=== PATIENT | female | born 2005 | race Hispanic/Latino ===

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

== ENCOUNTER 2024-04-24 14:39 | Emergency (ER) | payer MEDICAID ==
[~2024-04-24] VITALS: Ht 162.6 cm; Wt 73.9 kg
[~2024-04-24 14:39] MED LIST: AMOX1TAB16 PO; IBUP-2077 PO; SIME80TA13 PO
[2024-04-24 14:55] VITALS: BP 106/76; PULSE 117; RESP 16
[2024-04-24 15:53] LABS: ALBUMIN 3.8 g/dL (3.5-5.0)
[2024-04-24] MEDS: 0.9%NACL 1000ML 1,000 ML IV ONE (16:06)
[2024-04-24] MEDS: KETOROLAC 30MG VIAL (30MG/ML) IVP ONE (16:07)
[2024-04-24 17:05] LABS: APPEARANCE,URINE CLOUDY (CLEAR); BILIRUBIN,URINE NEGATIVE (NEGATIVE); COLOR,URINE COLORLESS (YELLOW); GLUCOSE, URINE (UA) NEGATIVE (NEGATIVE); KETONES,URINE NEGATIVE (NEGATIVE); LEUKOCYTE ESTERASE ,URINE 500 Leu/uL (NEGATIVE); NITRATE,URINE NEGATIVE (NEGATIVE); OCCULT BLOOD,URINE LARGE (NEGATIVE); PH,URINE 5.5 (5.0-8.0); PROTEIN,URINE 10 mg/dL (NEGATIVE); UROBILINOGEN,URINE 0.2 mg/dL (0.2-1.0)
[2024-04-24 17:06] LABS: ADD UA MICROSCOPIC YES
[2024-04-24 17:06] LABS: BASOPHILS # (AUTO) 0.03 K/uL (0.00-0.20); BASOPHILS % (AUTO) 0.3 % (0.0-5.0); EOSINOPHILS # (AUTO) 0.02 K/uL (0.00-0.70); EOSINOPHILS % (AUTO) 0.2 % (0.0-8.0); HEMATOCRIT 34.4 % (36-48); IMMATURE GRANULOCYTE ABSOLUTE 0.03 K/uL (0-1); LYMPHOCYTES # (AUTO) 0.8 K/uL (1.0-4.8); LYMPHOCYTES % (AUTO) 6.7 % (21.0-51.0); MEAN CORPUSCULAR HEMOGLOBIN 26.9 pg (27.0-33.0); MEAN CORPUSCULAR HGB CONC 32.6 g/dL (32.0-36.0); MEAN CORPUSCULAR VOLUME 82.7 fL (80-100); MONOCYTES # (AUTO) 0.9 K/uL (0.1-1.0); MONOCYTES % (AUTO) 7.4 % (3.0-13.0); NEUTROPHILS # (AUTO) 9.9 K/uL (1.8-7.7); NEUTROPHILS % (AUTO) 85.1 % (40.0-77.0); PLATELET COUNT (AUTO) 213 K/uL (130-400); RED BLOOD CELL COUNT(AUTO) 4.16 MIL/uL (4.00-5.50); RED CELL DISTRIBUTION WIDTH 13.9 % (11.0-15.5); WHITE BLOOD COUNT (AUTO) 11.6 K/uL (4.8-10.8)
[2024-04-24 17:09] LABS: HCG,QUALITATIVE URINE NEGATIVE (NEGATIVE)
[2024-04-24 17:11] LABS: BACTERIA,URINE RARE /HPF (None Seen); MUCUS,URINE RARE LPF (None Seen); OTHER CASTS, URINE 2 /LPF (None Seen); RBC,URINE 26-50 /HPF (0-1); SQUAMOUS EPITHELIAL CELL,UR FEW /HPF (0-2); WBC CLUMP FEW /HPF (0-1); WBC,URINE >100 /HPF (0-1); YEAST,URINE BUDDING FEW /HPF (None Seen)
[2024-04-24 17:18] LABS: ALBUMIN 3.5 g/dL (3.5-5.0); BILIRUBIN,TOTAL 0.3 mg/dL (0.2-1.0); CREATININE 0.9 mg/dL (0.5-1.0); POTASSIUM 3.7 mmol/L (3.5-5.1)
[2024-04-24] MEDS ORDERED: AMOX1TAB16 PO (17:46)
[2024-04-24] MEDS ORDERED: IBUP-2077 PO (17:46)
[2024-04-24] MEDS ORDERED: PHEN-847 PO (17:46)
== END 2024-04-24 19:03 | disposition home or self-care (01) ==
LOC: EDH 14:39
DX: N30.01 Acute cystitis with hematuria (principal); S39.012A Strain of muscle, fascia and tendon of lower back, initial encounter; Z79.899 Other long term (current) drug therapy; Z98.890 Other specified postprocedural states; X58.XXXA Exposure to other specified factors, initial encounter; Y93.89 Activity, other specified; Y92.89 Other specified places as the place of occurrence of the external cause; Y99.8 Other external cause status
CPT/HCPCS: 99285; 74176; 96374; 80053; 85025; 87077; 87088; 87186; 81001; 81025; 36415; J7030; J1885

== ENCOUNTER 2025-08-13 07:36 | Emergency (ER) | payer MEDICAID ==
[~2025-08-13] VITALS: Ht 160 cm; Wt 72.6 kg
[~2025-08-13 07:36] MED LIST changes: +PHEN-847 PO
[2025-08-13 08:13] LABS: IMMATURE GRANULOCYTE ABSOLUTE 0.03 K/uL (0-1); NUCLEATED RED BLOOD CELLS 0.0 % (0.0-0.19); PLATELET COUNT (AUTO) 234 K/uL (130-400); RED BLOOD CELL COUNT(AUTO) 4.58 MIL/uL (4.00-5.50); RED CELL DISTRIBUTION WIDTH 13.5 % (11.0-15.5); WHITE BLOOD COUNT (AUTO) 7.9 K/uL (4.8-10.8)
[2025-08-13 08:28] LABS: RAPID GROUP A STREP negative (NEGATIVE)
[2025-08-13 08:28] LABS: APPEARANCE,URINE CLEAR (CLEAR); GLUCOSE, URINE (UA) NEGATIVE (NEGATIVE); LEUKOCYTE ESTERASE ,URINE NEGATIVE Leu/uL (NEGATIVE); NITRATE,URINE NEGATIVE (NEGATIVE); OCCULT BLOOD,URINE NEGATIVE (NEGATIVE)
[2025-08-13 08:29] LABS: ADD UA MICROSCOPIC NO
[2025-08-13 08:30] LABS: HCG,QUALITATIVE URINE POSITIVE (NEGATIVE)
--- NOTE | 2025-08-13 08:37 | HMCIMG ---
EXAM: US Obstetrical, Complete <14 weeks CLINICAL HISTORY: Abdominal pain. SHERWIN: 03/26/2025. GA by SHERWIN: 7weeks 6days. TECHNIQUE: Transabdominal imaging of the maternal pelvis and a <14 week gestation with image documentation. COMPARISON: None provided. FINDINGS: GESTATION: Single intrauterine gestational sac with yolk sac and pole. Mean gestational sac diameter measures 2.10cm corresponding to 7 week and 2 days CRL measures 0.87 cm corresponding to 6 weeks and 6 day. heart rate is 141 bpm. UTERUS: Unremarkable and measures 8.8 x 4.4 x 6.3 cm. No myometrial mass. CERVIX: Closed. Unremarkable. OVARIES: Right ovary is obscured tariq to overlying bowel gases. Left ovary is unremarkable and measures 3 x 2 x 1.8 cm. No mass. FREE FLUID: No free fluid. IMPRESSION: Single viable intrauterine with gestational age of 7 weeks 1 day by present ultrasound. No acute abnormality. /Mireya
[2025-08-13 08:38] LABS: INFLUENZA TYPE A Negative For Type A (NEGATIVE); INFLUENZA TYPE B Negative For Type B (NEGATIVE)
[2025-08-13 08:39] LABS: SARS-CoV-2, RNA, NAAT NEGATIVE SARS CoV-2 (NEGATIVE)
[2025-08-13 08:51] LABS: ASPARTATE AMINOTRANSFERASE 19.0 U/L (10-37); CREATININE 0.5 mg/dL (0.5-1.0); GLOMERULAR FILTR. RATE CALC 137.0 mL/min (>90); GLUCOSE,RANDOM 103.0 mg/dL (70-105); HCG,QUANTITATIVE 44487.0 mIU/mL (0-5); SODIUM SERUM 136.0 mmol/L (136-145); TOTAL PROTEIN, SERUM 7.6 g/dL (6.0-8.3); UREA NITROGEN, BLOOD 7.0 mg/dL (7-18)
--- NOTE | 2025-08-13 09:57 | ERN ---
ED Note History of Present Illness Stated Complaint: ABD PAIN, 7 WEEKS Chief Complaint: Abdominal Pain Time Seen by MD: 07:40 Dictation: 20-year-old female presenting to the emergency department with comfortable congestion body aches also having some pelvic cramps but no vaginal bleeding Allergies: Coded Allergies: No Known Drug Allergies (Unverified Allergy, Unknown, 06/06/23) Home Meds Active Scripts Ibuprofen (Ibuprofen 800 mg Tab) 800 Mg Tab, 800 MG PO Q8H PRN for fever or pain, #30 TAB 0 Refills Prov:HAJA SAUCEDA NP 04/24/24 Phenazopyridine HCl (Pyridium) 200 Mg Tab, 200 MG PO TIDPC for 3 Days, #9 TAB TAKE WITH FOOD TO PREVENT STOMACH UPSET. Prov:HAJA SAUCEDA NP 04/24/24 Amoxicillin/Potassium Clav (Amox Tr-K Clv 875-125 mg Tab) 875 Mg-125 Mg Tablet, 1 EACH PO BID for 7 Days, #14 TAB 0 Refills Prov:HAJA SAUCEDA NP 04/24/24 Amoxicillin/Potassium Clav (Amox Tr-K Clv 875-125 mg Tab) 1 Each Tablet, 1 EACH PO Q12H, #14 TAB 0 Refills Prov:SIMÓN CAZARES AGPCJAMES 06/08/23 Simethicone (Mylicon/Mylanta Gas) 80 Mg Chew, 80 MG PO Q8H6, #21 TAB.CHEW 0 Refills Prov:SIMÓN CAZARES 06/08/23 Ibuprofen (Ibuprofen 800 mg Tab) 800 Mg Tab, 800 MG PO Q8H, #21 TAB 0 Refills Prov:SIMÓN CAZARESPCJAMES 06/08/23 Past Medical History Past Medical History: Gallstones Surgical History: Cholecystectomy Family History: HTN Social History: Negative, Lives with family History: Not Applicable LMP: Jul 09, 2025 : 1 Para: 0 Review of System Dictation Constitutional: Per HPI Eyes: Negative for injury, pain,redness, and discharge ENT: Negative for injury,pain or swelling Cardiovascular: Negative for chest pain, palpitations, and edema Respiratory: Negative for shortness of breath, cough, and wheezing, Abdomen/GI: Per HPI MS/Extremity: Negative for injury and deformity Skin: Negative for rash, and discoloration Neuro: Negative for headache, weakness, numbness, tingling, and seizure Psych: Negative for suicide ideation, homicidal ideation, and hallucinations Initial Vital Sign VS Vital Signs Date Time Temp Pulse Resp B/P (MAP) Pulse Ox O2 Delivery O2 Flow Rate FiO2 08/13/25 07:38 97.7 116 18 120/68 99 Room Air 0 08/13/25 07:50 21 Physical Exam Dictation General: awake, alert, NAD Head/Face: Normocephalic, atraumatic Eyes: PERRL, EOMI, vision at baseline ENT: oral cavity clear, TMs clear, no signs of infection Neck: Trachea midline, supple, no nuchal rigidity Cardiovascular: RRR, normal S1/S2, No MRGs, no JVD Respiratory: CTAB, no respiratory distress, No rales or wheezes Abdomen: Soft, non-tender, non-distended, normal bowel sounds, no guarding or rebound. Skin: Warm, dry, normal turgor, no rash MS/Extremity: Pulses equal, no cyanosis, neurovascular intact, FROM Neuro: COAx4, GCS 15, strength 5/5, CN 2-12 intact, normal cerebellar exam, normal gait, Psych: Normal behavior, mood, and affect normal Results (Laboratory/Radiology) Laboratory/Radiology Laboratory Tests Test 08/13/25 08:00 08/13/25 08:07 08/13/25 08:20 Influenza Type A Antigen Negative For Type A Influenza Type B Antigen Negative For Type B SARS-CoV-2, RNA, NAAT NEGATIVE SARS CoV-2 Group A Streptococcus Rapid negative (NEGATIVE) White Blood Count 7.9 K/uL (4.8-10.8) Red Blood Count 4.58 MIL/uL (4.00-5.50) Hemoglobin 12.6 g/dL (12.0-16.0) Hematocrit 38.3 % (36-48) Mean Corpuscular Volume 83.6 fL (80-100) Mean Corpuscular Hemoglobin 27.5 pg (27.0-33.0) Mean Corpuscular Hemoglobin Concent 32.9 g/dL (32.0-36.0) Red Cell Distribution Width 13.5 % (11.0-15.5) Platelet Count 234 K/uL (130-400) Mean Platelet Volume 11.5 fL (7.5-10.5) H Immature Granulocyte % (Auto) 0.4 % (0-1) Neutrophils (%) (Auto) 76.8 % (40.0-77.0) Lymphocytes (%) (Auto) 13.5 % (21.0-51.0) L Monocytes (%) (Auto) 7.0 % (3.0-13.0) Eosinophils (%) (Auto) 1.8 % (0.0-8.0) Basophils (%) (Auto) 0.5 % (0.0-5.0) Neutrophils # (Auto) 6.0 K/uL (1.8-7.7) Lymphocytes # (Auto) 1.1 K/uL (1.0-4.8) Monocytes # (Auto) 0.6 K/uL (0.1-1.0) Eosinophils # (Auto) 0.14 K/uL (0.00-0.70) Basophils # (Auto) 0.04 K/uL (0.00-0.20) Absolute Immature Granulocyte (auto 0.03 K/uL (0-1) Nucleated Red Blood Cells 0.0 % (0.0-0.19) Sodium Level 136 mmol/L (136-145) Potassium Level 4.3 mmol/L (3.5-5.1) Chloride Level 102 mmol/L (101-111) Carbon Dioxide Level 29 mmol/L (21-32) Blood Urea Nitrogen 7 mg/dL (7-18) Creatinine 0.5 mg/dL (0.5-1.0) Glomerular Filtration Rate Calc 137 mL/min (>90) Random Glucose 103 mg/dL (70-105) Total Calcium 8.7 mg/dL (8.5-10.1) Total Bilirubin 0.3 mg/dL (0.2-1.0) Direct Bilirubin 0.1 mg/dL (0.0-0.3) Aspartate Amino Transf (AST/SGOT) 19 U/L (10-37) Alanine Aminotransferase (ALT/SGPT) 34 U/L (12-78) Alkaline Phosphatase 118 U/L (50-136) Total Protein 7.6 g/dL (6.0-8.3) Albumin 3.7 g/dL (3.5-5.0) Human Chorionic Gonadotropin, Quant 69760 mIU/mL (0-5) H Urine Color LIGHT-YELLOW (YELLOW) Urine Appearance CLEAR (CLEAR) Urine pH 7.5 (5.0-8.0) Urine Specific [place] 1.017 (1.001-1.031) Urine Protein NEGATIVE mg/dL (NEGATIVE) Urine Glucose (UA) NEGATIVE mg/dL (NEGATIVE) Urine Ketones NEGATIVE mg/dL (NEGATIVE) Urine Occult Blood NEGATIVE (NEGATIVE) Urine Nitrate NEGATIVE (NEGATIVE) Urine Bilirubin NEGATIVE mg/dL (NEGATIVE) Urine Urobilinogen 0.2 mg/dL (0.2-1.0) Urine Leukocyte Esterase NEGATIVE [place]/uL Urine HCG, Qualitative POSITIVE (NEGATIVE) H Labs Reviewed?: Yes ED Course ED Course Orders Procedure Category Date Status Time Hcg,Quantitative LAB 08/13/25 Complete 07:41 Basic Metabolic Panel LAB 08/13/25 Complete 07:41 Cbc With Differential LAB 08/13/25 Complete 07:41 Hepatic Function Panel LAB 08/13/25 Complete 07:41 Urinalysis Profile LAB 08/13/25 Complete 07:41 ,Urine Test LAB 08/13/25 Complete 07:41 Us Ob <14 Weeks US 08/13/25 Resulted 07:41 Type And Screen BBK 08/13/25 Complete 07:41 Covid Rna Naat LAB 08/13/25 Complete 07:58 Influenza Type A & B, LAB 08/13/25 Complete Rapid 07:58 Rapid (Group A Strep) LAB 08/13/25 Complete 07:58 Vital Signs Date Time Temp Pulse Resp B/P (MAP) Pulse Ox O2 Delivery O2 Flow Rate FiO2 08/13/25 07:50 97.7 116 20 120/68 98 Room Air* 0 21 08/13/25 07:38 97.7 116 18 120/68 99 Room Air 0 Medical Decision Making MDM MDM: Differential diagnosis: Rationale: Tests considered and ordered secondary to shared decision making include: Previous outside records reviewed: Old ER visits. Risk of complication and/or morbidity or mortality of patient management: None Medications-Per medication reconciliation Need for hospitalization: Patient does not meet criteria for hospitalization. Need for emergency major/minor surgery: No There are no social concerns with this patient. Prescription drug management Prescriptions will include symptomatic care Patient's prior external medical records from other ER visits were reviewed by me as indicated. Prior testing and results from previous visits were reviewed. Prior tests were taken into account with medical decision making and resource utilization, independent historian/historians were used to obtain complete medical history. I independently interpreted the test that were performed, results were reviewed by me and considered findings on radiology if ordered. Medical management and examination interpretation discussions were had by me with other qualified healthcare professionals as indicated for the patient's care. 20-year-old female seven weeks stable ultrasound and lab workup, URI, stable for discharge. DX & DISP Disposition: Discharge Departure Impression: Primary Impression: First trimester Additional Impression: Acute URI Condition: Stable Referrals: MARIA DEL ROSARIO BELL (PCP) NADIRA BAILEY MD Aug 13, 2025 09:57
[2025-08-13 10:26] VITALS: BP 115/73; PULSE 105; RESP 18; TEMP 97.9; O2SAT 99
== END 2025-08-13 10:29 | disposition home or self-care (01) ==
LOC: EDH 07:36
DX: O26.891 Other specified pregnancy related conditions, first trimester (principal); O99.511 Diseases of the respiratory system complicating pregnancy, first trimester; J06.9 Acute upper respiratory infection, unspecified; Z3A.01 Less than 8 weeks gestation of pregnancy; Z90.49 Acquired absence of other specified parts of digestive tract; Z20.822 Contact with and (suspected) exposure to COVID-19
CPT/HCPCS: 36415; 76801; 80048; 80076; 81003; 81025; 84702; 85025; 86850; 86900; 86901; 87635; 87804; 87880; 99284

== ENCOUNTER 2025-11-09 19:05 | Emergency (ER) | payer MEDICAID ==
[~2025-11-09] VITALS: Ht 165.1 cm; Wt 78.5 kg
--- NOTE | 2025-11-09 21:28 | ERN ---
ED Note History of Present Illness Stated Complaint: SORE THROAT Chief Complaint: Sore Throat Time Seen by MD: 19:32 Time Seen by Midlevel: 19:32 Dictation: The patient is a 20-year-old female with a history of cholecystectomy who presents to the emergency department with complaints of sore throat, chills onset Wednesday. Patient reports that yesterday she started with a fevers, dry cough, body aches, nasal congestion. Patient reports also she use five months but denies any abdominal pain, vaginal bleeding or discharge. Denies any OB complaints. Patient is one Allergies: Coded Allergies: No Known Drug Allergies (Unverified Allergy, Unknown, 06/06/23) Home Meds Active Scripts Ibuprofen (Ibuprofen 800 mg Tab) 800 Mg Tab, 800 MG PO Q8H PRN for fever or pain, #30 TAB 0 Refills Prov:HAJA SAUCEDA INTEGRITY ANALYST 04/24/24 Phenazopyridine HCl (Pyridium) 200 Mg Tab, 200 MG PO TIDPC for 3 Days, #9 TAB TAKE WITH FOOD TO PREVENT STOMACH UPSET. Prov:HAJA SAUCEDA INTEGRITY ANALYST 04/24/24 Amoxicillin/Potassium Clav (Amox Tr-K Clv 875-125 mg Tab) 875 Mg-125 Mg Tablet, 1 EACH PO BID for 7 Days, #14 TAB 0 Refills Prov:HAJA SAUCEDA INTEGRITY ANALYST 04/24/24 Amoxicillin/Potassium Clav (Amox Tr-K Clv 875-125 mg Tab) 1 Each Tablet, 1 EACH PO Q12H, #14 TAB 0 Refills Prov:SIMÓN CAZARES AGACNP 06/08/23 Simethicone (Mylicon/Mylanta Gas) 80 Mg Chew, 80 MG PO Q8H6, #21 TAB.CHEW 0 Refills Prov:SIMÓN CAZARES AGACNP 06/08/23 Ibuprofen (Ibuprofen 800 mg Tab) 800 Mg Tab, 800 MG PO Q8H, #21 TAB 0 Refills Prov:SIMÓN CAZARES AGACNP 06/08/23 Past Medical History Past Medical History: No Pertinent History, Gallstones Surgical History: Cholecystectomy Family History: HTN Social History: Negative, Lives with family History: Not Applicable : 1 Para: 0 RN Note Reviewed/Agreed w/PFSH: Yes Review of System Dictation Constitutional: Negative for weight loss positive for fever, chills Eyes: Negative for injury, pain,redness, and discharge ENT: Negative for injury,pain or swelling positive for sore throat Cardiovascular: Negative for chest pain, palpitations, and edema Respiratory: Negative for shortness of breath, and wheezing, positive for dry cough, nasal congestion Abdomen/GI: Negative for abdominal pain, nausea, vomiting, diarrhea, and constipation Back: Negative for injury and pain : Negative for injury, bleeding and discharge MS/Extremity: Negative for injury and deformity Skin: Negative for rash, and discoloration Neuro: Negative for headache, weakness, numbness, tingling, and seizure Psych: Negative for suicide ideation, homicidal ideation, and hallucinations Initial Vital Sign VS Vital Signs Date Time Temp Pulse Resp B/P (MAP) Pulse Ox O2 Delivery O2 Flow Rate FiO2 11/09/25 19:32 98.1 91 20 130/72 99 Room Air Physical Exam Dictation Vital Signs reviewed General Appearance: Alert, oriented x 3, no acute distress, well developed, nourished. Head and Face: non-traumatic. Eyes: PERRL, pink conjunctivas, eyelid no trauma, anterior chamber with arcus senilis. Ears: Pinnas intact and no signs of trauma or erythema ear canals clear and no discharge TM no erythema Nose: No discharge, no bleeding. Oropharynx: Mouth normal, tongue pink. pharynx clear,no erythema, tonsils no exudates, no abscesses noted, mucous membrane moist Neck: Supple, non-tender, no thyromegaly, no masses, no JVD, no bruits Breast:Deferred Chest:No tenderness, no crepitus, no paradoxical movement, no retractions Lungs:Clear, well-ventilated, symmetric, no rales, no wheezing, no rhonchi, no stridor, good breath sounds bilaterally Heart: Regular rate, regular rhythm, no murmur, no gallops Vascular: no peripheral edema, Abdomen: Soft, positive bowel sounds, nondistended, no guarding, nontender, no rebound, no masses no hepatomegaly, no splenomegaly, no Preciado's sign, no hernias. Rectal: Deferred Genital: Deferred Neurological: Normal speech, motor function intact, sensory function intact Musculoskeletal: Neck nontender, full range of motion, back nontender, full range of motion, Extremities: nontender, full range of motion Skin: Color pink, dry, no turgor, no rash, no lacerations, no abrasions, no contusions. Lymphatic: Deferred Results (Laboratory/Radiology) Laboratory/Radiology Laboratory Tests Test 11/09/25 21:32 Influenza Type A Antigen Negative For Type A Influenza Type B Antigen Negative For Type B SARS-CoV-2 Antigen (Rapid) PRESUMPTIVE NEGATIVE Group A Streptococcus Rapid negative (NEGATIVE) Labs Reviewed?: Yes ED Course ED Course Orders Procedure Category Date Status Time Covid19 (Sars Antigen LAB 11/09/25 Complete Rapid) 19:44 Influenza Type A & B, LAB 11/09/25 Complete Rapid 19:44 Rapid (Group A Strep) LAB 11/09/25 Complete 19:44 Vital Signs Date Time Temp Pulse Resp B/P (MAP) Pulse Ox O2 Delivery O2 Flow Rate FiO2 11/09/25 19:32 98.1 91 20 130/72 99 Room Air Medical Decision Making MDM The patient is a 20-year-old female with a history of cholecystectomy who presents to the emergency department with complaints of sore throat, chills onset Wednesday. Patient reports that yesterday she started with a fevers, dry cough, body aches, nasal congestion. Patient reports also she use five months but denies any abdominal pain, vaginal bleeding or discharge. Denies any OB complaints. Patient is one Serology was negative. Patient this is consistent with a an upper respiratory infection. Patient in no acute distress, nontoxic appearance. Stable vital signs, clear lung sounds, no hypoxemia Patient will be discharged to follow up with PCP. Differential diagnosis: Upper respiratory infection, strep throat, COVID-19 infection Need for hospitalization: Patient does not meet criteria for hospitalization. There are no social concerns with this patient. DX & DISP Disposition: Discharge Departure Impression: Primary Impression: Viral URI Condition: Stable Additional Instructions: Your labs were negative. Your symptoms are consistent with a an upper respiratory infection. Please follow up with the your primary doctor in 1-2 days. Continue oral hydration at home. You can take Tylenol as needed for fevers and pain. FOLLOW-UP WITH PRIMARY CARE PROVIDER IN 1 TO 2 DAYS. TAKE MEDICATIONS DIRECTED HERE IN THE EMERGENCY ROOM. OKAY TO CONTINUE HOME MEDICATIONS UNLESS OTHERWISE DISCUSSED DURING YOUR VISIT IN THE EMERGENCY ROOM TODAY. RETURN TO YOUR NEAREST EMERGENCY ROOM IF SYMPTOMS WORSEN OR IF THERE IS NO IMPROVEMENT. CALL 911 IF YOU NEED IMMEDIATE ASSISTANCE. TAKE TYLENOL [id number] NEEDED AND IF NO CONTRAINDICATIONS ARE PRESENT. INCREASE ORAL HYDRATION. A WOUND CULTURE OR URINE CULTURE WAS ORDERED HERE IN THE EMERGENCY ROOM DEPARTMENT PLEASE FOLLOW-UP WITH PRIMARY CARE PROVIDER AND ADVISE THEM TO GET REPEAT PORTS FROM OUR FACILITY. IF YOU HAD ANY BILL WRAP/SPLINTS THAT WERE APPLIED HERE, PLEASE DO NOT REMOVE THEM UNTIL YOU SEE YOUR PRIMARY CARE OR SPECIALTY. Referrals: JORGE STRAUSS MD (PCP) Time of Disposition: 23:32 I have reviewed the case, and I agree with, Diagnosis and Plan AMANDA URIAS [facility] Nov 09, 2025 21:28
--- NOTE | 2025-11-09 21:33 | NUR ---
COVID, FLU AND STREP SWABS COLLECTED AND SENT
[2025-11-09 22:51] LABS: RAPID GROUP A STREP negative (NEGATIVE)
[2025-11-09 22:58] LABS: INFLUENZA TYPE A Negative For Type A (NEGATIVE); INFLUENZA TYPE B Negative For Type B (NEGATIVE)
[2025-11-09 23:15] LABS: COVID19 (SARS ANTIGEN RAPID) PRESUMPTIVE NEGATIVE (NEGATIVE)
[2025-11-09 23:48] VITALS: BP 107/66; PULSE 85; RESP 17; TEMP 98.8; O2SAT 98
== END 2025-11-09 23:51 | disposition home or self-care (01) ==
LOC: EDH 19:05
DX: O99.512 Diseases of the respiratory system complicating pregnancy, second trimester (principal); J06.9 Acute upper respiratory infection, unspecified; Z20.822 Contact with and (suspected) exposure to COVID-19; Z90.49 Acquired absence of other specified parts of digestive tract; Z3A.20 20 weeks gestation of pregnancy
CPT/HCPCS: 87426; 87804; 87880; 99283